=== PATIENT | female | born 1955 | race Caucasian/White ===

== ENCOUNTER → 2021-11-11 | Outpatient (CLI) | payer OTHER ==
--- NOTE | 2021-11-11 17:14 | RAD ---
EXAM: Left knee, 3 views. HISTORY: Pain. COMPARISON: None. FINDINGS: 3 views of the left knee are obtained. There is no fracture, dislocation or subluxation. Th ere is no significant joint effusion. IMPRESSION: No acute osseous finding. Electronically signed by: Alba Coleman MD (11/11/2021 5:12 PM) [id number]
== END ==
LOC: RAD 15:11
PROVIDERS: ATTEND Specialist
DX: M25.562 Pain in left knee (principal)
CPT/HCPCS: 73562

== ENCOUNTER → 2021-11-24 | Outpatient (CLI) | payer OTHER ==
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
== END ==
LOC: RAD 11:05
PROVIDERS: ATTEND Specialist
DX: M47.812 Spondylosis without myelopathy or radiculopathy, cervical region (principal); M48.02 Spinal stenosis, cervical region; M47.892 Other spondylosis, cervical region; M46.02 Spinal enthesopathy, cervical region
CPT/HCPCS: 72050